=== PATIENT | male | born 1955 | race Caucasian/White ===

== ENCOUNTER 2017-01-27 12:35 | Emergency (ER) | payer BC ==
[2017-01-27] MEDS ORDERED: KETOROLAC 30 MG/ML 1 ML VIAL IVP STA (13:31)
[2017-01-27] MEDS ORDERED: SODIUM CHLORIDE 0.9% 1,000 ML IV STA (13:31)
[2017-01-27] MEDS ORDERED: ONDANSETRON 4 MG/2 ML VIAL IVP STA (13:31)
--- NOTE | 2017-01-27 13:40 | ED ---
General Adult HPI - General Chief complaint: Abdominal Pain Stated complaint: Abdominal Pain Time Seen by Provider: 01/27/17 13:24 Source: patient, RN notes reviewed, old records reviewed Mode of arrival: ambulatory Limitations: no limitations - History of Present Illness Initial comments: This is a 61-year-old male to the ER for evaluation. The patient presents here today for evaluation of abdominal pain. Patient did see his family doctor in [place] for the same evaluation. Patient has no medical history takes no medication. Patient's pain appears very quadrant with nausea. Symptoms seem to occur after eating. Patient is scheduled for ultrasound on Tuesday, states pain Keppra from being able to make that appointment today. Pain is getting progressively worse no fevers. No change in bowel or bladder - Related Data Home Medications Medication Instructions Recorded Confirmed Cholecalciferol [Vitamin D3] 2,000 unit PO DAILY 01/27/17 01/27/17 Lisinopril [Zestril] 20 mg PO HS 01/27/17 01/27/17 Simvastatin [Zocor] 80 mg PO MO 01/27/17 01/27/17 Tamsulosin HCl [Flomax] 0.4 mg PO HS 01/27/17 01/27/17 Allergies Allergy/AdvReac Type Severity Reaction Status Date / Time No Known Allergies Allergy Verified 01/27/17 13:50 Review of Systems ROS Statement: Those systems with pertinent positive or pertinent negative responses have been documented in the HPI. ROS Other: All systems not noted in ROS Statement are negative. Past Medical History Past Medical History: Hyperlipidemia, Hypertension History of Any Multi-Drug Resistant Organisms: None Reported Past Surgical History: Orthopedic Surgery Additional Past Surgical History / Comment(s): right shoulder, left wrist Past Psychological History: No Psychological Hx Reported Smoking Status: Current every day smoker Past Alcohol Use History: Occasional Past Drug Use History: None Reported General Exam Limitations: no limitations General appearance: alert, in no apparent distress Head exam: Present: atraumatic, normocephalic, normal inspection Eye exam: Present: normal appearance, PERRL, EOMI. Absent: scleral icterus, conjunctival injection, periorbital swelling ENT exam: Present: normal exam, mucous membranes moist Neck exam: Present: normal inspection. Absent: tenderness, meningismus, lymphadenopathy Respiratory exam: Present: normal lung sounds bilaterally. Absent: respiratory distress, wheezes, rales, rhonchi, stridor Cardiovascular Exam: Present: regular rate, normal rhythm, normal heart sounds. Absent: systolic murmur, diastolic murmur, rubs, gallop, clicks GI/Abdominal exam: Present: soft, normal bowel sounds. Absent: distended, tenderness, guarding, rebound, rigid Extremities exam: Present: normal inspection, full ROM, normal capillary refill. Absent: tenderness, pedal edema, joint swelling, calf tenderness Back exam: Present: normal inspection Neurological exam: Present: alert, oriented X3, CN II-XII intact Psychiatric exam: Present: normal affect, normal mood Skin exam: Present: warm, dry, intact, normal color. Absent: rash Course Vital Signs 01/27/17 12:51 Temperature 97.8 F Pulse Rate 84 Respiratory 20 Rate Blood Pressure 139/71 O2 Sat by Pulse 99 Oximetry - Reevaluation(s) Reevaluation #1: 01/27/17 14:53 At this time patient's pain is completely improved Medical Decision Making - Medical Decision Making 58 female here for evaluation earlier colic, patient does have symptoms insistent with biliary colic, also is negative for acute cholecystitis, patient will be given follow-up for general surgery, advocated for outpatient HIDA scan. - Lab Data Result diagrams: 01/27/17 13:55 01/27/17 13:55 Lab Results 01/27/17 01/27/17 Range/Units 13:55 13:55 WBC 8.0 (3.8-10.6) k/uL RBC 5.21 (4.30-5.90) m/uL Hgb 16.0 (13.0-17.5) gm/dL Hct 45.6 (39.0-53.0) % MCV 87.5 (80.0-100.0) fL MCH 30.7 (25.0-35.0) pg MCHC 35.1 (31.0-37.0) g/dL RDW 13.5 (11.5-15.5) % Plt Count 184 (150-450) k/uL Neutrophils % 67 % Lymphocytes % 22 % Monocytes % 4 % Eosinophils % 2 % Basophils % 1 % Neutrophils # 5.4 (1.3-7.7) k/uL Lymphocytes # 1.8 (1.0-4.8) k/uL Monocytes # 0.4 (0-1.0) k/uL Eosinophils # 0.2 (0-0.7) k/uL Basophils # 0.1 (0-0.2) k/uL Sodium 138 (137-145) mmol/L Potassium 4.6 (3.5-5.1) mmol/L Chloride 100 (98-107) mmol/L Carbon Dioxide 29 (22-30) mmol/L Anion Gap 9 mmol/L BUN 18 (9-20) mg/dL Creatinine 1.17 (0.66-1.25) mg/dL Est GFR (MDRD) Af Amer >60 (>60 ml/min/1.73 sqM) Est GFR (MDRD) Non-Af >60 (>60 ml/min/1.73 sqM) Glucose 92 (74-99) mg/dL Calcium 10.3 H (8.4-10.2) mg/dL Total Bilirubin 0.6 (0.2-1.3) mg/dL AST 26 (17-59) U/L ALT 32 (21-72) U/L Alkaline Phosphatase 69 (38-126) U/L Total Protein 7.6 (6.3-8.2) g/dL Albumin 4.5 (3.5-5.0) g/dL Amylase 87 (30-110) U/L Lipase 322 H (23-300) U/L - Radiology Data Radiology results: report reviewed (Ultrasound gallbladder shows contracted gallbladder but no definite cholelithiasis or cholecystitis), image reviewed Disposition Clinical Impression: Abdominal pain, Pancreatitis Disposition: HOME SELF-CARE Condition: Good Instructions: Abdominal Pain (ED), Biliary Colic (ED) Referrals: Alvaro Vences MD [STAFF PHYSICIAN] - 1-2 days
[2017-01-27 14:06] LABS: Basophils # (A) 0.1 k/uL (0-0.2); Basophils % (A) 1 %; CH 30.9; CHCM 35.6; Eosinophils # (A) 0.2 k/uL (0-0.7); Eosinophils % (A) 2 %; HCT 45.6 % (39.0-53.0); Luc % (Auto) 4; Lymphocytes # (A) 1.8 k/uL (1.0-4.8); Lymphocytes % (A) 22 %; MCH 30.7 pg (25.0-35.0); MCHC 35.1 g/dL (31.0-37.0); MCV 87.5 fL (80.0-100.0); Mean Platelet Volume 7.3; Monocytes # (A) 0.4 k/uL (0-1.0); Monocytes % (A) 4 %; Neutrophils # (A) 5.4 k/uL (1.3-7.7); Neutrophils % (A) 67 %; RBC 5.21 m/uL (4.30-5.90); RDW 13.5 % (11.5-15.5); WBC (Perox) 7.86
[2017-01-27 14:13] LABS: ALT 32 U/L (21-72); AST 26 U/L (17-59); Alkaline Phosphatase 69 U/L (38-126); Amylase 87 U/L (30-110); Anion Gap 9 mmol/L; Blood Urea Nitrogen 18 mg/dL (9-20); Calcium 10.3 mg/dL (8.4-10.2); Carbon Dioxide 29 mmol/L (22-30); Chloride 100 mmol/L (98-107); Glucose 92 mg/dL (74-99); Non-African American GFR(MDRD) >60 (>60 ml/min/1.73 sqM); Potassium 4.6 mmol/L (3.5-5.1); Sodium 138 mmol/L (137-145); Total Bilirubin 0.6 mg/dL (0.2-1.3); Total Protein 7.6 g/dL (6.3-8.2)
--- NOTE | 2017-01-27 14:50 | US ---
EXAMINATION TYPE: US gallbladder DATE OF EXAM: 01/27/2017 2:25 PM COMPARISON: NONE CLINICAL HISTORY: Pain. EXAM MEASUREMENTS: Liver Length: 13.2 cm Gallbladder Wall: 0.3 cm CBD: 0.2 cm Right Kidney: 10.4 x 4.5 x 4.7 cm patient ate lunch 3 hours prior Pancreas: Obscured by bowel gas Liver: wnl Gallbladder: patient not NPO, appears wnl Evidence for sonographic Haynes's sign: CBD: wnl Right Kidney: wnl IMPRESSION: The gallbladder is contracted however no definite cholelithiasis is appreciated.
[2017-01-27 15:23] VITALS: BP 128/70; PULSE 76; RESP 18; TEMP 97.9
== END 2017-01-27 15:23 | disposition home or self-care (01) ==
LOC: EC 12:35
DX: K85.90 Acute pancreatitis without necrosis or infection, unspecified (principal); K80.50 Calculus of bile duct without cholangitis or cholecystitis without obstruction; E78.5 Hyperlipidemia, unspecified; I10 Essential (primary) hypertension; F17.200 Nicotine dependence, unspecified, uncomplicated; Z79.899 Other long term (current) drug therapy
CPT/HCPCS: 99284 ×2; 96374 ×2; 96375 ×2; 96361 ×2; 36415; 80053; 82150; 83690; 85025; 76705; J2405; J1885

== ENCOUNTER 2017-02-03 11:15 | Observation (INO) | payer BC ==
[2017-02-03] MEDS ORDERED: SODIUM CHLORIDE 0.9% 1,000 ML IV STA ×2 (11:45→12:50)
[2017-02-03 11:54] LABS: Basophils % (A) 1 %; CH 30.9; CHCM 34.9; Eosinophils # (A) 0.1 k/uL (0-0.7); Eosinophils % (A) 1 %; HCT 46.7 % (39.0-53.0); HDW 2.94; HGB 15.5 gm/dL (13.0-17.5); Luc # (Auto) 0.26; Luc % (Auto) 3; Lymphocytes # (A) 1.9 k/uL (1.0-4.8); Lymphocytes % (A) 21 %; MCH 29.4 pg (25.0-35.0); MCHC 33.1 g/dL (31.0-37.0); MCV 88.9 fL (80.0-100.0); Mean Platelet Volume 6.6; Monocytes # (A) 0.4 k/uL (0-1.0); Monocytes % (A) 5 %; Neutrophils # (A) 6.2 k/uL (1.3-7.7); Neutrophils % (A) 70 %; RBC 5.25 m/uL (4.30-5.90); RDW 13.5 % (11.5-15.5); WBC 8.9 k/uL (3.8-10.6); WBC (Perox) 8.63
[2017-02-03 12:03] LABS: ALT 30 U/L (21-72); AST 20 U/L (17-59); Alkaline Phosphatase 63 U/L (38-126); Anion Gap 10 mmol/L; Blood Urea Nitrogen 20 mg/dL (9-20); Calcium 9.2 mg/dL (8.4-10.2); Carbon Dioxide 26 mmol/L (22-30); Chloride 102 mmol/L (98-107); Glucose 125 mg/dL (74-99); Magnesium 2.1 mg/dL (1.6-2.3); Non-African American GFR(MDRD) >60 (>60 ml/min/1.73 sqM); Phosphorous 4.5 mg/dL (2.5-4.5); Potassium 4.3 mmol/L (3.5-5.1); Sodium 138 mmol/L (137-145); Total Bilirubin 0.6 mg/dL (0.2-1.3); Total Protein 6.9 g/dL (6.3-8.2)
--- NOTE | 2017-02-03 12:07 | ED ---
General Adult HPI - General Chief complaint: Dizziness Stated complaint: dizziness Time Seen by Provider: 02/03/17 11:22 Source: patient, EMS, RN notes reviewed, old records reviewed Mode of arrival: EMS - History of Present Illness Initial comments: This is a 61-year-old male the ER for evaluation. The patient presents for evaluation of near syncopal event. Patient has no significant medical history is been recently taking pain control for gallbladder disease. Patient states that he started off today feeling well had a little pain recently with her gallbladder but nothing significant. And then had a near syncopal event at work today, became very flushed diaphoretic weak and can hardly stand. On arrival to ER patient states his symptoms are improving - Related Data Home Medications Medication Instructions Recorded Confirmed Cholecalciferol [Vitamin D3] 2,000 unit PO DAILY 01/27/17 02/03/17 Lisinopril [Zestril] 20 mg PO DAILY 01/27/17 02/03/17 Simvastatin [Zocor] 80 mg PO MO 01/27/17 02/03/17 Tamsulosin HCl [Flomax] 0.4 mg PO HS 01/27/17 02/03/17 Previous Rx's Medication Instructions Recorded HYDROcodone/APAP 5-325MG [[place] 1 tab PO Q6HR PRN #30 tab 01/27/17 5-325] Allergies Allergy/AdvReac Type Severity Reaction Status Date / Time No Known Allergies Allergy Verified 02/03/17 11:54 Review of Systems ROS Statement: Those systems with pertinent positive or pertinent negative responses have been documented in the HPI. ROS Other: All systems not noted in ROS Statement are negative. Past Medical History Past Medical History: Hyperlipidemia, Hypertension History of Any Multi-Drug Resistant Organisms: None Reported Past Surgical History: Orthopedic Surgery Additional Past Surgical History / Comment(s): right shoulder, left wrist and jaw Past Psychological History: No Psychological Hx Reported Smoking Status: Current every day smoker Past Alcohol Use History: None Reported, Occasional Past Drug Use History: None Reported General Exam General appearance: alert, in no apparent distress Head exam: Present: atraumatic, normocephalic, normal inspection Eye exam: Present: normal appearance, PERRL, EOMI. Absent: scleral icterus, conjunctival injection, periorbital swelling ENT exam: Present: normal exam, mucous membranes moist Neck exam: Present: normal inspection. Absent: tenderness, meningismus, lymphadenopathy Respiratory exam: Present: normal lung sounds bilaterally. Absent: respiratory distress, wheezes, rales, rhonchi, stridor Cardiovascular Exam: Present: regular rate, normal rhythm, normal heart sounds. Absent: systolic murmur, diastolic murmur, rubs, gallop, clicks GI/Abdominal exam: Present: soft, normal bowel sounds. Absent: distended, tenderness, guarding, rebound, rigid Extremities exam: Present: normal inspection, full ROM, normal capillary refill. Absent: tenderness, pedal edema, joint swelling, calf tenderness Back exam: Present: normal inspection Neurological exam: Present: alert, oriented X3, CN II-XII intact Psychiatric exam: Present: normal affect, normal mood Skin exam: Present: warm, dry, intact, normal color. Absent: rash Course Vital Signs 02/03/17 02/03/17 02/03/17 11:23 12:32 13:15 Temperature 97.1 F L 97.2 F L 97.2 F L Pulse Rate 55 L 63 73 Respiratory 18 18 18 Rate Blood Pressure 143/74 135/67 146/68 O2 Sat by Pulse 98 96 98 Oximetry 02/03/17 02/03/17 14:18 15:12 Temperature 97.5 F L 98.1 F Pulse Rate 79 72 Respiratory 20 18 Rate Blood Pressure 142/67 147/79 O2 Sat by Pulse 100 97 Oximetry - Reevaluation(s) Reevaluation #1: 02/03/17 15:42 At this point patient is relatively symptomatically no chest pain or shortness of breath, no abdominal pain no nausea vomiting EKG Findings - EKG Comments: EKG Findings:: EKG shows sinus bradycardia rate 58, ME 178, QRS 86, QTC 406 Medical Decision Making - Medical Decision Making 58 female, in the ER status post near syncopal event. Patient's been dealing with episodic abdominal pain and back pain correlated or what he thinks might be his gallbladder, patient has gallbladder evaluation with ultrasound showing gallbladder disease but no acute cholecystitis, patient has CT CTA today which show no PE no aortic aneurysm, lab work is normal patient will be admitted for cardiac observation and surgical evaluation - Lab Data Result diagrams: 02/03/17 11:38 02/03/17 11:38 Lab Results 03/09/17 03/09/17 03/09/17 Range/Units 11:38 11:38 11:38 WBC 8.9 (3.8-10.6) k/uL RBC 5.25 (4.30-5.90) m/uL Hgb 15.5 (13.0-17.5) gm/dL Hct 46.7 (39.0-53.0) % MCV 88.9 (80.0-100.0) fL MCH 29.4 (25.0-35.0) pg MCHC 33.1 (31.0-37.0) g/dL RDW 13.5 (11.5-15.5) % Plt Count 181 (150-450) k/uL Neutrophils % 70 % Lymphocytes % 21 % Monocytes % 5 % Eosinophils % 1 % Basophils % 1 % Neutrophils # 6.2 (1.3-7.7) k/uL Lymphocytes # 1.9 (1.0-4.8) k/uL Monocytes # 0.4 (0-1.0) k/uL Eosinophils # 0.1 (0-0.7) k/uL Basophils # 0.0 (0-0.2) k/uL PT (9.0-12.0) sec INR (<1.1) APTT (22.0-30.0) sec D-Dimer (<0.60) mg/L FEU Sodium 138 (137-145) mmol/L Potassium 4.3 (3.5-5.1) mmol/L Chloride 102 (98-107) mmol/L Carbon Dioxide 26 (22-30) mmol/L Anion Gap 10 mmol/L BUN 20 (9-20) mg/dL Creatinine 1.14 (0.66-1.25) mg/dL Est GFR (MDRD) Af Amer >60 (>60 ml/min/1.73 sqM) Est GFR (MDRD) Non-Af >60 (>60 ml/min/1.73 sqM) Glucose 125 H (74-99) mg/dL Calcium 9.2 (8.4-10.2) mg/dL Phosphorus 4.5 (2.5-4.5) mg/dL Magnesium 2.1 (1.6-2.3) mg/dL Total Bilirubin 0.6 (0.2-1.3) mg/dL AST 20 (17-59) U/L ALT 30 (21-72) U/L Alkaline Phosphatase 63 (38-126) U/L Total Creatine Kinase 116 (55-170) U/L CK-MB (CK-2) 0.9 (0.0-2.4) ng/mL CK-MB (CK-2) Rel Index 0.8 Troponin I <0.012 (0.000-0.034) ng/mL Total Protein 6.9 (6.3-8.2) g/dL Albumin 4.3 (3.5-5.0) g/dL Lipase (23-300) U/L 02/03/17 02/03/17 02/03/17 Range/Units 11:38 11:38 11:38 WBC (3.8-10.6) k/uL RBC (4.30-5.90) m/uL Hgb (13.0-17.5) gm/dL Hct (39.0-53.0) % MCV (80.0-100.0) fL MCH (25.0-35.0) pg MCHC (31.0-37.0) g/dL RDW (11.5-15.5) % Plt Count (150-450) k/uL Neutrophils % % Lymphocytes % % Monocytes % % Eosinophils % % Basophils % % Neutrophils # (1.3-7.7) k/uL Lymphocytes # (1.0-4.8) k/uL Monocytes # (0-1.0) k/uL Eosinophils # (0-0.7) k/uL Basophils # (0-0.2) k/uL PT 10.6 (9.0-12.0) sec INR 1.1 (<1.1) APTT 22.8 (22.0-30.0) sec D-Dimer 0.41 (<0.60) mg/L FEU Sodium (137-145) mmol/L Potassium (3.5-5.1) mmol/L Chloride (98-107) mmol/L Carbon Dioxide (22-30) mmol/L Anion Gap mmol/L BUN (9-20) mg/dL Creatinine (0.66-1.25) mg/dL Est GFR (MDRD) Af Amer (>60 ml/min/1.73 sqM) Est GFR (MDRD) Non-Af (>60 ml/min/1.73 sqM) Glucose (74-99) mg/dL Calcium (8.4-10.2) mg/dL Phosphorus (2.5-4.5) mg/dL Magnesium (1.6-2.3) mg/dL Total Bilirubin (0.2-1.3) mg/dL AST (17-59) U/L ALT (21-72) U/L Alkaline Phosphatase (38-126) U/L Total Creatine Kinase (55-170) U/L CK-MB (CK-2) (0.0-2.4) ng/mL CK-MB (CK-2) Rel Index Troponin I (0.000-0.034) ng/mL Total Protein (6.3-8.2) g/dL Albumin (3.5-5.0) g/dL Lipase 229 (23-300) U/L - Radiology Data Radiology results: report reviewed, image reviewed Critical Care Time Critical Care Time: Yes Total Critical Care Time: 31 Disposition Clinical Impression: Weakness, Near syncope, Abdominal pain Disposition: ADMITTED IP TO THIS [facility] Condition: Undetermined Referrals: Any Junior DO [Primary Care Provider] - 1-2 days
[2017-02-03 12:13] LABS: Creatine Kinase 116 U/L (55-170)
[2017-02-03 12:26] LABS: Creatine Kinase MB 0.9 ng/mL (0.0-2.4); Troponin I <0.012 ng/mL (0.000-0.034)
[2017-02-03 12:31] LABS: INR 1.1 (<1.1); Partial Thromboplastin Time 22.8 sec (22.0-30.0); Prothrombin Time 10.6 sec (9.0-12.0)
[2017-02-03] MEDS ORDERED: RX INFO: IV CONTRAST WAS GIVEN 1 EACH MISC MISCELLANE PRN (13:28)
--- NOTE | 2017-02-03 14:57 | CT ---
CT CHEST FOR PULMONARY EMBOLISM. EXAMINATION TYPE: CT angio chest DATE OF EXAM: 02/03/2017 2:03 PM INDICATION: fatigue and near syncopal episode. CT DLP: 1675.3 mGycm, Automated exposure control for dose reduction was used. CONTRAST: Patient injected with 100 mL of Omnipaque 350. COMPARISON: NONE TECHNIQUE: CT of the chest is performed on a spiral scan at 2 mm thick sections. Study is performed with intravenous contrast timed for evaluation for pulmonary embolism. This will limit additional po rtions of the evaluation. 3-D MIP images reconstructed by the technologist are reviewed on the compu ter in the coronal and sagittal planes. FINDINGS: No persistent filling defects are evident to suggest an acute pulmonary embolism. No mediastinal or hilar adenopathy enlarged by CT criteria is evident. The ascending aorta diameter at the level of the main pulmonary artery is 3.4 cm. The main pulmonary artery diameter at the bifur cation is 2.2 cm. Lung windows are clear. Limited CT section through the upper abdomen are unremarkable. IMPRESSIONS: 1. No acute pulmonary embolism.
--- NOTE | 2017-02-03 15:23 | CT ---
EXAMINATION TYPE: CT abdomen pelvis w con DATE OF EXAM: 02/03/2017 2:03 PM COMPARISON: NONE INDICATION: fatigue and near syncopal episode. DLP: 1675.3 mGycm, Automated exposure control for dose reduction was used. CONTRAST: 100 mL of Omnipaque 350. Study performed without Oral Contrast TECHNIQUE: Axial images were obtained from above the diaphragm to the pubic rami in the axial plane a t 5 mm thick sections. Reconstructed images are reviewed on the computer in the coronal plane. FINDINGS: Limited CT sections are obtained the lung bases. The lung bases are clear. CT ABDOMEN: Liver: Normal Spleen: Normal Pancreas: Normal Adrenal glands: The adrenal glands are normal. Gallbladder: Normal Kidneys: No masses are evident. No hydronephrosis is present. No cysts are present. Delayed images were obtained through the kidneys, which remain unremarkable. Aorta: Vascular calcification is within the aorta. Inferior vena cava: Normal. CT PELVIS: Loops of bowel within the abdomen and pelvis are normal. Sigmoid diverticulosis is present. No ac [place] diverticulitis is evident. No dilated loops of bowel are evident. Appendix: Normal as visualized. Urinary bladder: Normal. Genitourinary structures: Prostate is somewhat prominent. A few calcifications are present. Osseous structures: No suspicious lytic or sclerotic lesions. IMPRESSIONS: 1. No acute process. 2. Sigmoid diverticulosis without acute diverticulitis.
[2017-02-03] MEDS ORDERED: NITROGLYCERIN SL TABS 0.4 MG TAB SUBLINGUAL PRN (15:46)
[2017-02-03] MEDS ORDERED: ASPIRIN 81 MG CHEW PO STA (15:46)
[2017-02-03 19:08] LABS: Creatine Kinase 133 U/L (55-170)
[2017-02-03 19:24] LABS: Creatine Kinase MB 0.9 ng/mL (0.0-2.4); Troponin I <0.012 ng/mL (0.000-0.034)
[2017-02-04 00:17] LABS: Creatine Kinase 123 U/L (55-170)
[2017-02-04 00:31] LABS: Creatine Kinase MB 0.6 ng/mL (0.0-2.4); Troponin I <0.012 ng/mL (0.000-0.034)
[2017-02-04 01:56] LABS: Cholesterol 152 mg/dL (<200); HDL Cholesterol 48 mg/dL (40-60); Triglycerides 132 mg/dL (<150)
[2017-02-04] MEDS ORDERED: HYDROcodone/APAP 5-325MG 1 EACH TAB PO PRN (08:54)
[2017-02-04 09:32] LABS: Basophils % (A) 1 %; CH 30.8; CHCM 34.8; Eosinophils # (A) 0.1 k/uL (0-0.7); Eosinophils % (A) 1 %; HCT 46.1 % (39.0-53.0); HDW 2.92; HGB 15.4 gm/dL (13.0-17.5); Luc # (Auto) 0.28; Luc % (Auto) 4; Lymphocytes % (A) 27 %; MCH 29.8 pg (25.0-35.0); MCHC 33.5 g/dL (31.0-37.0); MCV 89.1 fL (80.0-100.0); Mean Platelet Volume 6.6; Monocytes # (A) 0.4 k/uL (0-1.0); Monocytes % (A) 5 %; Neutrophils # (A) 4.7 k/uL (1.3-7.7); Neutrophils % (A) 63 %; RBC 5.18 m/uL (4.30-5.90); RDW 13.6 % (11.5-15.5); WBC 7.5 k/uL (3.8-10.6); WBC (Perox) 7.51
[2017-02-04 09:41] LABS: ALT 24 U/L (21-72); AST 21 U/L (17-59); Alkaline Phosphatase 64 U/L (38-126); Anion Gap 11 mmol/L; Blood Urea Nitrogen 16 mg/dL (9-20); Calcium 9.5 mg/dL (8.4-10.2); Carbon Dioxide 24 mmol/L (22-30); Chloride 106 mmol/L (98-107); Glucose 113 mg/dL (74-99); Non-African American GFR(MDRD) >60 (>60 ml/min/1.73 sqM); Potassium 4.4 mmol/L (3.5-5.1); Sodium 141 mmol/L (137-145); Total Bilirubin 0.7 mg/dL (0.2-1.3)
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
[2017-02-04] MEDS ORDERED: CHOLECALCIFEROL 1,000 UNIT TAB PO SCH (12:00)
[2017-02-04] MEDS: ENOXAPARIN 40 MG/0.4 ML SYRINGE SQ SCH (14:28)
[2017-02-04] MEDS: NICOTINE 21MG/24HR PATCH TRANSDERM SCH (14:28)
[2017-02-04] MEDS: LISINOPRIL 20 MG TAB PO SCH (14:29)
[2017-02-04] MEDS: ASPIRIN 325 MG TAB PO SCH (15:16)
--- NOTE | 2017-02-04 16:16 | CONS ---
DATE OF CONSULTATION: Mr. Asencio is a 61-year-old gentleman who is seen for cardiac evaluation. This patient recently has been having pain in the right upper and mid quadrant and has been evaluated for possible gallbladder. Yesterday while patient was at work he had a couple of episodes of chest pain and he took [place]. About an hour after that the patient got quite dizzy; he became diaphoretic and weak and his color became pale. He did not pass out. When he came to the ER his symptoms were improving. Patient has a history of hypertension, hyperlipidemia. Patient denies any history suggestive of angina. Patient does smoke. There is no prior history of myocardial infarction. Past medical history includes a history of orthopedic surgery, right shoulder and left wrist surgery. Smoking history: Patient is currently an everyday smoker. In the emergency room, physical examination showed patient alert and awake; does not appear to be in any acute distress. In the emergency room, patient's initial blood pressure was 143/74 mmHg. Heart rate was 55 per minute. Physical examination now reveals a blood pressure 135/62 mmHg. Head/ENT examination is negative. Neck is supple. There is no increase in jugular venous pressure. Both the carotid pulses are felt. There is no bruit. Chest is symmetrical. HEART: The PMI is not felt. First and second heart sounds are normal. There is no evidence of any murmur. Lungs are clinically clear to auscultation and percussion. Abdomen is soft. Liver and spleen are not enlarged. Bowel sounds are heard. EXTREMITIES: Peripheral pulsations are 2+. EKG shows a normal sinus rhythm without any acute ischemic changes. Patient's cardiac enzymes are normal. No arrhythmias are noted. FINAL IMPRESSION: 1. Near-syncopal spell, most likely secondary to pain medications. 2. History of gallstones. 3. History of hypertension. No arrhythmias are noted. If patient's echocardiogram is normal, patient can be discharged home. I will follow him in the office and evaluate him with a stress test as an outpatient.
--- NOTE | 2017-02-04 16:20 | ECHOF ---
Referral Reason:syncope MEASUREMENTS -------- HEIGHT: 160.0 cm WEIGHT: 69.0 kg BP: RVIDd: 2.8 cm (< 3.3) IVSd: 1.1 cm (0.6 - 1.1) LVIDd: 4.2 cm (3.9 - 5.3) LVPWd: 1.0 cm (0.6 - 1.1) IVSs: 1.7 cm LVIDs: 2.6 cm LVPWs: 1.4 cm LA Diam: 2.8 cm (2.7 - 3.8) LAESV Index (A-L): 23.01 ml/m Ao Diam: 2.8 cm (2.0 - 3.7) AV Cusp: 1.8 cm (1.5 - 2.6) LA Diam: 3.0 cm (2.7 - 3.8) MV EXCURSION: 10.412 mm (> 18.000) MV EF SLOPE: 91 mm/s (70 - 150) EPSS: 0.8 cm MV E Angus: 0.65 m/s MV DecT: 136 ms MV A Angus: 0.62 m/s MV E/A Ratio: 1.04 FINDINGS -------- Sinus rhythm. This was a technically good study. Left ventricular wall thickness is normal. Overall left ventricular systolic function is normal with, an EF between 55 - 60 %. The right ventricle is normal in size. Normal LA size by volume 22+/-6 ml/m2. The right atrium is normal in size. Aortic valve is trileaflet and is mildly thickened. Mild mitral annular calcification present. Trace tricuspid regurgitation present. Pulmonic valve appears structurally normal. The aortic root size is normal. Normal inferior vena cava with normal inspiratory collapse consistent with estimated right atrial pressure of 5 mmHg. Echo free space may represent effusion or a pericardial fat pad. CONCLUSIONS -------- 1. Sinus rhythm. 2. Trace tricuspid regurgitation present. 3. Pulmonic valve appears structurally normal. 4. The aortic root size is normal. 5. Normal inferior vena cava with normal inspiratory collapse consistent with estimated right atrial pressure of 5 mmHg. 6. Echo free space may represent effusion or a pericardial fat pad. 7. This was a technically good study. 8. Left ventricular wall thickness is normal. 9. Overall left ventricular systolic function is normal with, an EF between 55 - 60 %. 10. The right ventricle is normal in size. 11. Normal LA size by volume 22+/-6 ml/m2. 12. The right atrium is normal in size. 13. Aortic valve is trileaflet and is mildly thickened. 14. Mild mitral annular calcification present. RETAIL ASSOCIATE: Kei Holt RDCS
--- NOTE | 2017-02-04 18:57 | NM ---
EXAMINATION TYPE: NM hepatobiliary w EF DATE OF EXAM: 02/04/2017 6:49 PM COMPARISON: NONE HISTORY: Abdominal pain TECHNIQUE: After the intravenous administration of 5.4 mCi Tc 99m Mebrofenin hepatobiliary scintigrap hy is performed. Immediate images post injection. FINDINGS: There is satisfactory initial accumulation of tracer by the liver. The gallbladder is visualized wit hin 10 minutes minutes. The small bowel activity is noted within 20 minutes. At one hour 8 ounces o f oral ensure plus is given to mimic CCK and gallbladder ejection fraction is calculated at 53 %, in the normal range. Therefore there is no scintigraphic evidence of cystic or common bile duct obstruc tion to suggest acute cholecystitis or gallbladder dyskinesia. IMPRESSION: No focal liver defect. No evidence of cystic duct or common bile duct obstruction. There is gallbladder ejection fraction within normal limits.
[2017-02-04 19:25] VITALS: RESP 18
[2017-02-04] MEDS ORDERED: TAMSULOSIN 0.4 MG CAP.ER.24H PO SCH (21:00)
[2017-02-05] MEDS: LISINOPRIL 20 MG TAB PO SCH (07:50)
[2017-02-05] MEDS: ASPIRIN 325 MG TAB PO SCH (07:50)
[2017-02-05] MEDS: NICOTINE 21MG/24HR PATCH TRANSDERM SCH (07:51)
[2017-02-05] MEDS: ENOXAPARIN 40 MG/0.4 ML SYRINGE SQ SCH (07:51)
[2017-02-05] MEDS ORDERED: FAMOTIDINE 20 MG TAB PO SCH (09:00)
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
[2017-02-05 12:03] VITALS: BP 132/69; PULSE 73; TEMP 98
--- NOTE | 2017-02-05 12:11 | PN ---
This patient was seen for the evaluation of dizziness and abdominal pain. Patient has been found to have a gallstone and he is supposed to have gallstone surgery. Patient's echocardiogram was normal. Vital signs are stable. First and second heart sounds are normal. Lungs are clinically clear to auscultation and percussion. No arrhythmias are noted. Patient can be discharged home. We will schedule him for a stress echo as an outpatient. If the stress echo is normal, one can proceed with the gallbladder surgery.
--- NOTE | 2017-02-05 15:02 | P.DS ---
Providers Date of admission: 02/03/17 15:47 Expected date of discharge: 02/05/17 Attending physician: Narciso Sosa Consults: 02/04/17 14:37 Consult Physician Stat Consulting Provider: Rustam Shaffer Consult Reason/Comments: right upper quadrant pain Do you want consulting provider notified?: Yes Primary care physician: Any Junior [facility] Course: Patient is a 61-year-old male admitted to [facility] was a chief complaint of near syncope and right upper quadrant abdominal pain he was evaluated by cardiology he had an echocardiogram which was within normal limits he had a CT angiogram of the chest which revealed no evidence of pulmonary embolism. In that regard to his right upper quadrant pain patient had a computed tomography scan of the abdomen which revealed no abnormality pertaining to his gallbladder he also underwent a nuclear scan HIDA scan which was negative Patient was stable he was discharged home on 02/05/2017 he will be followed by his primary care physician as [facility] he would also be followed by Dr. Shaffer his surgeon Patient Condition at Discharge: Undetermined Plan - Discharge Summary Discharge Medication List Cholecalciferol [Vitamin D3] 2,000 unit PO DAILY 01/27/17 [History] HYDROcodone/APAP 5-325MG [[place] 5-325] 1 tab PO Q6HR PRN #30 tab 01/27/17 [Rx] Lisinopril [Zestril] 20 mg PO DAILY 01/27/17 [History] Simvastatin [Zocor] 80 mg PO MO 01/27/17 [History] Tamsulosin HCl [Flomax] 0.4 mg PO HS 01/27/17 [History] Follow up Appointment(s)/Referral(s): Valdemar Medina MD [Medical Doctor] - As Needed (Follow up as needed. ) Any Junior DO [Primary Care Provider] - 1-2 days Xin Cook MD [STAFF PHYSICIAN] - 2 Weeks Discharge Disposition: HOME SELF-CARE
[2017-02-07] MEDS ORDERED: ATORVASTATIN 40 MG TAB PO SCH (09:00)
== END 2017-02-05 12:30 | disposition home or self-care (01) ==
LOC: EC 11:15 → 3OBS 15:47
PROVIDERS: ADMIT Internal Medicine; ATTEND Internal Medicine
DX: R55 Syncope and collapse (principal); R10.11 Right upper quadrant pain; F17.200 Nicotine dependence, unspecified, uncomplicated; I10 Essential (primary) hypertension; N40.0 Benign prostatic hyperplasia without lower urinary tract symptoms; E78.5 Hyperlipidemia, unspecified; Z79.899 Other long term (current) drug therapy; K80.20 Calculus of gallbladder without cholecystitis without obstruction; R53.1 Weakness; R61 Generalized hyperhidrosis; R07.9 Chest pain, unspecified
CPT/HCPCS: 36415; 93005; 93306; 85379; 80061; 80053 ×2; 82550; 82553; 83690; 83735; 84100; 84484; 85025 ×2; 85610; 85730; 71275; 74177; 78226; 99291; 96360; 96361; G0378 ×3; A9537; Q9967; J1650; 96372; 99285

== ENCOUNTER 2017-03-01 08:37 | Day surgery (SDC) | payer BC ==
[2017-02-24 11:57] VITALS: BMI 25.7
[~2017-03-01 08:37] MED LIST: LACTATED RINGERS 1,000 ML IV SCH; LIDOCAINE 1% 20 ML VIAL (10MG/ML) FOR IV START INTRADERMA PRN
[2017-03-01 08:55] VITALS: RESP 16; TEMP 97.6
[2017-03-01] MEDS ORDERED: LIDOCAINE 1% INJ 10MG/ML (20 ML MDV) ONE (09:10)
[2017-03-01] MEDS ORDERED: PROPOFOL 10 MG/ML 20 ML VIAL IV ONE (09:10)
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
--- NOTE | 2017-03-01 09:27 | P.PN ---
Progress Note - Text The patient's ultrasound was reviewed with the radiologist. There does in fact appear to be sludge in the gallbladder. The patient's right upper quadrant pain may be related to this. The radial report will be revised.
--- NOTE | 2017-03-01 09:31 | P.OP ---
Date of Procedure: 03/01/17 Preoperative Diagnosis: Right upper quadrant pain Postoperative Diagnosis: Mild antral gastritis Hiatal hernia Esophagitis Procedure(s) Performed: EGD Anesthesia: MAC Surgeon: Rustam Shaffer Pathology: other (Antral, esophagus) Condition: stable Disposition: PACU Description of Procedure: Patient's placed on the endoscopy table in the lateral position. He received IV sedation. The gastroscope some placed oropharynx and passed into the esophagus and into the stomach. The scope was then placed through the pylorus. The first and second portion of duodenum appeared normal. Scope was then brought back the antrum and this was mildly inflamed. A biopsies was performed. The scope was then retroflexed and the remainder of the stomach appeared normal. There was a moderate size sliding hiatal hernia. The GE junction was at 38 cm.. The distal esophagus appeared inflamed and this was biopsied. The proximal esophagus appeared normal. The scope was withdrawn for patient. The patient's ultrasound was reviewed after the procedure. The radiologist reviewed the films and agrees that there in fact his sludge within the gallbladder. The patient will follow-up in the office for his biopsy results and ultrasound results.
[2017-03-01 10:00] VITALS: BP 115/81; PULSE 85
== END 2017-03-01 10:04 | disposition home or self-care (01) ==
LOC: ORWHC2ENDO 08:37
PROVIDERS: ATTEND Surgery
DX: K29.50 Unspecified chronic gastritis without bleeding (principal); K44.9 Diaphragmatic hernia without obstruction or gangrene; K20.9 Esophagitis, unspecified; I10 Essential (primary) hypertension; E78.5 Hyperlipidemia, unspecified; N40.0 Benign prostatic hyperplasia without lower urinary tract symptoms; F17.200 Nicotine dependence, unspecified, uncomplicated; Z79.82 Long term (current) use of aspirin; Z79.899 Other long term (current) drug therapy
CPT/HCPCS: 88305; 88342; 43239; J2001; J2704

== ENCOUNTER 2017-03-24 08:46 | Day surgery (SDC) | payer BC ==
[2017-03-22 15:30] VITALS: BMI 24.9
[~2017-03-24 08:46] MED LIST changes: +DEXAMETHASONE SOD PHOSPHATE 10 MG/ML 1 ML VIAL IV ONE; +HEPARIN SODIUM,PORCINE 5,000 UNIT/ML 1 ML VIAL SQ ONE; +HYDROmorphone 1 MG/ML 1 ML SYRINGE IVP PRN; -LIDOCAINE 1% 20 ML VIAL (10MG/ML) FOR IV START INTRADERMA PRN; +ONDANSETRON 4 MG/2 ML VIAL IVP ONE; +ceFAZolin 2 GM in SODIUM CHLORIDE 0.9% 100 ML IVPB ONE
[2017-03-24] MEDS ORDERED: LIDOCAINE 1% 20 ML VIAL (10MG/ML) FOR IV START INTRADERMA ONE (09:43)
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
[2017-03-24] MEDS ORDERED: PHENYLEPHRINE-0.9% NACL SYG 1 MG/10 ML SYRINGE ONE (10:17)
[2017-03-24] MEDS ORDERED: SUCCINYLCHOLINE CHLORIDE 100 MG/5 ML SYR IV ONE (10:17)
[2017-03-24] MEDS ORDERED: NEOSTIGMINE 1 MG/ML 10 ML VIAL ONE (10:17)
[2017-03-24] MEDS ORDERED: fentaNYL (PF) 50 MCG/ML 2 ML AMP ONE (10:17)
[2017-03-24] MEDS ORDERED: PROPOFOL 10 MG/ML 20 ML VIAL IV ONE (10:17)
[2017-03-24] MEDS ORDERED: KETOROLAC 30 MG/ML 1 ML VIAL ONE (10:17)
[2017-03-24] MEDS ORDERED: GLYCOPYRROLATE 0.2 MG/ML 2 ML VIAL ONE (10:17)
[2017-03-24] MEDS ORDERED: LIDOCAINE 1% INJ 10MG/ML (20 ML MDV) ONE (10:17)
[2017-03-24] MEDS ORDERED: MIDAZOLAM 2 MG/2 ML VIAL ONE (10:17)
[2017-03-24] MEDS ORDERED: VECURONIUM 10 MG VIAL IV ONE (10:17)
[2017-03-24] MEDS ORDERED: SODIUM CHLORIDE 0.9% 50 ML with ceFAZolin 2,000 MG IV ONE ×2 (10:23)
[2017-03-24] MEDS ORDERED: BUPIVACAIN-EPI 0.25%-1:200,000 30 ML VIAL SQ ONE ×2 (10:40)
[2017-03-24] MEDS ORDERED: LACTATED RINGERS 1,000 ML IV ONE (10:46)
--- NOTE | 2017-03-24 10:51 | P.OP ---
Date of Procedure: 03/24/17 Preoperative Diagnosis: Cholecystitis Postoperative Diagnosis: Cholecystitis Procedure(s) Performed: Laparoscopic cholecystectomy Anesthesia: ABBY Surgeon: Rustam Shaffer Estimated Blood Loss (ml): 5 Pathology: other (Gallbladder) Condition: stable Disposition: PACU Description of Procedure: MThe patient was placed on the operating table. The patient received a general endotracheal tube anesthesia. The patients abdomen was prepped and draped in the usual sterile fashion. Through an infraumbilical stab incision , the fascia of the anterior abdominal wall was grasped with a pair of Kochers and then the Veress needle was placed in the peritoneal cavity. Position of the Veress needle was confirmed with positive drop test. The abdomen was then insufflated. After adequate insufflation, the 10 mm trocar was placed in the peritoneal cavity. Following this the laparoscope was placed in the peritoneal cavity. The patient was placed in the head-up, right side up position and then a 5 mm trocar was placed in the right lateral and right subcostal position under direct visualization. A 8 mm trocar was placed in the epigastric position. The gallbladder was grasped in the fundus and infundibulum. Traction on the gallbladder was placed in the lateral and the cephalad positions. The triangle of Calot was visualized.. The cystic duct was bluntly dissected until the union of the cystic duct and common bile duct was seen. The cystic duct was then divided and sealed with the Harmonic scissors. A PDS Endoloop was then placed throughout the cystic duct stump. The cystic artery divided and sealed with the Harmonic scissors. The gallbladder was then removed from the liver bed using Harmonic scissors. The gallbladder was then extracted through the epigastric port site. Operative field was checked for any bleeding spots and Harmonic scissors was used to coagulate the liver bed. The abdomen was irrigated. The trocars were removed. The skin was closed using interrupted 3-0 Vicryl suture. Dermabond dressing were applied. The patient tolerated the procedure well.
[2017-03-24 11:14] VITALS: TEMP 97.2
[2017-03-24 12:30] VITALS: RESP 18
[2017-03-24 12:36] VITALS: BP 113/66; PULSE 68
[2017-03-24] MEDS ORDERED: HYDROcodone/APAP 7.5-325MG 1 EACH TAB PO ONE (12:49)
== END 2017-03-24 13:33 | disposition home or self-care (01) ==
LOC: OR 08:46
PROVIDERS: ATTEND Surgery
DX: K80.10 Calculus of gallbladder with chronic cholecystitis without obstruction (principal); E78.5 Hyperlipidemia, unspecified; I10 Essential (primary) hypertension; N42.9 Disorder of prostate, unspecified; F17.200 Nicotine dependence, unspecified, uncomplicated; Z79.82 Long term (current) use of aspirin; Z79.899 Other long term (current) drug therapy
CPT/HCPCS: 88304; 47562; J2250; J1644; J1100; J2710; J2405; J2001; J3010; J1885; J1170; J0690; J2370; J0330; J2704

== ENCOUNTER 2019-04-13 07:35 | Observation (INO) | payer BC ==
[2019-04-13] MEDS ORDERED: SODIUM CHLORIDE 0.9% 500 ML 500 ML IV STA (07:41)
[2019-04-13] MEDS ORDERED: SODIUM CHLORIDE 0.9% 1,000 ML IV STA (07:41)
[2019-04-13] MEDS ORDERED: IPRATROPIUM-ALBUTEROL 3 ML NEB INHALATION STA (07:43)
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
[2019-04-13 07:53] LABS: Glucose,Whole Blood 142 mg/dL (75-99)
[2019-04-13 08:11] LABS: Basophils % (A) 0 %; Eosinophils # (A) 0.1 k/uL (0-0.7); Eosinophils % (A) 1 %; HCT 42.3 % (39.0-53.0); HGB 14.4 gm/dL (13.0-17.5); Lymphocytes # (A) 1.1 k/uL (1.0-4.8); Lymphocytes % (A) 14 %; MCH 29.3 pg (25.0-35.0); MCV 86.1 fL (80.0-100.0); Mean Platelet Volume 6.8; Monocytes # (A) 0.4 k/uL (0-1.0); Monocytes % (A) 4 %; Neutrophils # (A) 6.5 k/uL (1.3-7.7); Neutrophils % (A) 79 %; Platelet Count 158 k/uL (150-450); RBC 4.91 m/uL (4.30-5.90); RDW 13.8 % (11.5-15.5); WBC 8.3 k/uL (3.8-10.6)
--- NOTE | 2019-04-13 08:16 | CT ---
EXAMINATION TYPE: CT brain wo con DATE OF EXAM: 04/13/2019 COMPARISON: Syncope and dizziness HISTORY: syncope, dizziness CT DLP: 1070.4 mGycm Automated exposure control for dose reduction was used. TECHNIQUE: CT scan of the head is performed without contrast. FINDINGS: There is no acute intracranial hemorrhage or midline shift identified. There are 2 old CS F attenuated lacunar injuries seen of the right basal ganglia There is diffuse ventricular and sulcal prominence consistent with diffuse age-related cerebral atrophy. Atherosclerosis is noted of the int racranial vasculature. There is low-attenuation in the periventricular white matter consistent with chronic small vessel ischemic change. The globes are intact and the visualized sinuses are clear. IMPRESSION: 1. No acute intracranial hemorrhage or midline shift. 2. Two old right basal ganglia lacunar injuries. 3. There is diffuse age-related cerebral atrophy and chronic small vessel ischemic change, likely on the basis of chronic microangiopathy.
--- NOTE | 2019-04-13 08:22 | XR ---
EXAMINATION TYPE: XR chest 2V DATE OF EXAM: 04/13/2019 COMPARISON: NONE TECHNIQUE: PA and lateral views submitted. HISTORY: Weakness FINDINGS: The lungs are clear and there is no pneumothorax, pleural effusion, or focal pneumonia. Hyperinflat ion the lungs. Hypertrophic and degenerative changes spine. Previous surgery involving the right shou lder. 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 IMPRESSION: 1. No acute process. Correlate for COPD.
[2019-04-13 08:26] LABS: Potassium 4.1 mmol/L (3.5-5.1); Total Bilirubin 0.5 mg/dL (0.2-1.3); Total Protein 6.5 g/dL (6.3-8.2)
[2019-04-13 08:35] LABS: D-Dimer 0.37 mg/L FEU (<0.60); INR 0.9 (<1.2); Partial Thromboplastin Time 21.9 sec (22.0-30.0)
[2019-04-13 09:57] LABS: Appearance,Urine Clear (Clear); Bilirubin,Urine Negative (Negative); Blood,Urine Trace (Negative); Color,Urine Yellow; Glucose,Urine (UA) Negative (Negative); Ketones,Urine Negative (Negative); Leukocyte Esterase,Urine Negative (Negative); Mucus,Urine Rare /hpf; Nitrite,Urine Negative (Negative); PH, Urine 6.5 (5.0-8.0); Protein,Urine Negative (Negative); RBC,Urine 1 /hpf (0-5); Specific Gravity,Urine 1.018 (1.001-1.035); Urobilinogen,Urine <2.0 mg/dL (<2.0); WBC,Urine <1 /hpf (0-5)
[2019-04-13] MEDS ORDERED: NALOXONE 0.4 MG/ML 1 ML VIAL IV PRN (11:25)
[2019-04-13] MEDS ORDERED: SODIUM CHLORIDE 0.9% 1,000 ML IV SCH (11:30)
[2019-04-13] MEDS ORDERED: IPRATROPIUM-ALBUTEROL 3 ML NEB INHALATION PRN ×2 (11:33→13:02)
--- NOTE | 2019-04-13 11:33 | ED ---
Medical Decision Making - Medical Decision Making H and was offered a nicotine patch she is declining at this time - Lab Data Result diagrams: 04/13/19 07:45 04/13/19 07:45 Lab Results 04/13/19 04/13/19 04/13/19 Range/Units 07:45 07:45 07:45 WBC 8.3 (3.8-10.6) k/uL RBC 4.91 (4.30-5.90) m/uL Hgb 14.4 (13.0-17.5) gm/dL Hct 42.3 (39.0-53.0) % MCV 86.1 (80.0-100.0) fL MCH 29.3 (25.0-35.0) pg MCHC 34.0 (31.0-37.0) g/dL RDW 13.8 (11.5-15.5) % Plt Count 158 (150-450) k/uL Neutrophils % 79 % Lymphocytes % 14 % Monocytes % 4 % Eosinophils % 1 % Basophils % 0 % Neutrophils # 6.5 (1.3-7.7) k/uL Lymphocytes # 1.1 (1.0-4.8) k/uL Monocytes # 0.4 (0-1.0) k/uL Eosinophils # 0.1 (0-0.7) k/uL Basophils # 0.0 (0-0.2) k/uL PT 10.0 (9.0-12.0) sec INR 0.9 (<1.2) APTT 21.9 L (22.0-30.0) sec D-Dimer 0.37 (<0.60) mg/L FEU Sodium 137 (137-145) mmol/L Potassium 4.1 (3.5-5.1) mmol/L Chloride 105 (98-107) mmol/L Carbon Dioxide 25 (22-30) mmol/L Anion Gap 7 mmol/L BUN 16 (9-20) mg/dL Creatinine 1.04 (0.66-1.25) mg/dL Est GFR (CKD-EPI)AfAm 87 (>60 ml/min/1.73 sqM) Est GFR (CKD-EPI)NonAf 75 (>60 ml/min/1.73 sqM) Glucose 139 H (74-99) mg/dL POC Glucose (mg/dL) (75-99) mg/dL POC Glu Cooking Casing And Drying Supervisor ID Calcium 9.0 (8.4-10.2) mg/dL Magnesium 2.0 (1.6-2.3) mg/dL Total Bilirubin 0.5 (0.2-1.3) mg/dL AST 20 (17-59) U/L ALT 21 (21-72) U/L Alkaline Phosphatase 59 (38-126) U/L Creatine Kinase 114 (55-170) U/L Troponin I (0.000-0.034) ng/mL Total Protein 6.5 (6.3-8.2) g/dL Albumin 4.0 (3.5-5.0) g/dL Urine Color Urine Appearance (Clear) Urine pH (5.0-8.0) Ur Specific [place] (1.001-1.035) Urine Protein (Negative) Urine Glucose (UA) (Negative) Urine Ketones (Negative) Urine Blood (Negative) Urine Nitrite (Negative) Urine Bilirubin (Negative) Urine Urobilinogen (<2.0) mg/dL Ur Leukocyte Esterase (Negative) Urine RBC (0-5) /hpf Urine WBC (0-5) /hpf Urine Mucus (None) /hpf 04/13/19 04/13/19 04/13/19 Range/Units 07:45 07:52 09:25 WBC (3.8-10.6) k/uL RBC (4.30-5.90) m/uL Hgb (13.0-17.5) gm/dL Hct (39.0-53.0) % MCV (80.0-100.0) fL MCH (25.0-35.0) pg MCHC (31.0-37.0) g/dL RDW (11.5-15.5) % Plt Count (150-450) k/uL Neutrophils % % Lymphocytes % % Monocytes % % Eosinophils % % Basophils % % Neutrophils # (1.3-7.7) k/uL Lymphocytes # (1.0-4.8) k/uL Monocytes # (0-1.0) k/uL Eosinophils # (0-0.7) k/uL Basophils # (0-0.2) k/uL PT (9.0-12.0) sec INR (<1.2) APTT (22.0-30.0) sec D-Dimer (<0.60) mg/L FEU Sodium (137-145) mmol/L Potassium (3.5-5.1) mmol/L Chloride (98-107) mmol/L Carbon Dioxide (22-30) mmol/L Anion Gap mmol/L BUN (9-20) mg/dL Creatinine (0.66-1.25) mg/dL Est GFR (CKD-EPI)AfAm (>60 ml/min/1.73 sqM) Est GFR (CKD-EPI)NonAf (>60 ml/min/1.73 sqM) Glucose (74-99) mg/dL POC Glucose (mg/dL) 142 H (75-99) mg/dL POC Glu Cooking Casing And Drying Supervisor ID Galina Howard Calcium (8.4-10.2) mg/dL Magnesium (1.6-2.3) mg/dL Total Bilirubin (0.2-1.3) mg/dL AST (17-59) U/L ALT (21-72) U/L Alkaline Phosphatase (38-126) U/L Creatine Kinase (55-170) U/L Troponin I <0.012 (0.000-0.034) ng/mL Total Protein (6.3-8.2) g/dL Albumin (3.5-5.0) g/dL Urine Color Yellow Urine Appearance Clear (Clear) Urine pH 6.5 (5.0-8.0) Ur Specific [place] 1.018 (1.001-1.035) Urine Protein Negative (Negative) Urine Glucose (UA) Negative (Negative) Urine Ketones Negative (Negative) Urine Blood Trace H (Negative) Urine Nitrite Negative (Negative) Urine Bilirubin Negative (Negative) Urine Urobilinogen <2.0 (<2.0) mg/dL Ur Leukocyte Esterase Negative (Negative) Urine RBC 1 (0-5) /hpf Urine WBC <1 (0-5) /hpf Urine Mucus Rare H (None) /hpf Disposition Clinical Impression: Near syncope, Smoker, Bronchospasm, acute Disposition: ADMITTED IP TO THIS [facility] Condition: Stable Referrals: Any Junior DO [Primary Care Provider] - 1-2 days Procedures - Smoking Cessation Time Spent Discussing Smoking Cessation w/Patient (Minutes): 3
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
[2019-04-13] MEDS: ASPIRIN 81 MG PO SCH (13:43)
[2019-04-13] MEDS: IPRATROPIUM-ALBUTEROL 3 ML NEB INHALATION SCH ×2 (15:17→20:08)
--- NOTE | 2019-04-13 15:39 | CT ---
EXAMINATION TYPE: CT angio head neck DATE OF EXAM: 04/13/2019 HISTORY: Syncope R/O VBI COMPARISON: CT brain dated 04/13/2019 CT DLP: 383.6 mGycm. Automated Exposure Control for Dose Reduction was Utilized. TECHNIQUE: CTA scan of the neck is performed with IV Contrast, patient injected with 100 ml mL of Is ovue 370, axial images are obtained, coronal and sagittal reformatted images are reviewed. Three-D re constructed images are created on an independent workstation and reviewed. FINDINGS: CAROTID/VASCULAR STRUCTURES: Left vertebral artery is slightly dominant. Vertebral arteries have a co nventional origin and appear patent throughout. Basilar artery is also patent. Minimal atherosclerosi s is seen of the aortic arch. A short segment of the left common carotid artery is not visualized due to extensive spray artifact originating from the left axilla. The remainder of the common carotid ar teries are patent and unremarkable. Minimal nonhemodynamically significant calcific atheromatous plaq uing is seen of the right carotid artery. Within the right internal carotid artery located 1.3 cm distal to the carotid bulb there is a short s egment of stenosis measuring 6 mm in length. This stenosis measures approximately 70%. Within the lef t carotid bulb there is approximately 50% stenosis extending into the origin of the left internal car otid artery. Remainder of the internal carotid arteries are patent with nonhemodynamically significan t stenosis in the cavernous portions and supraglenoid portions. No focal stenosis is seen within the major intracranial arterial vasculature. The posterior communica ting arteries are either diminutive or congenitally absent. No aneurysmal dilatation is seen nor occl usion. OTHER: Visualized portions of the brain are discussed on the CT brain dictation of the same date. Min imal left apical atelectasis is seen. Moderate multilevel degenerative changes of the cervical spine is noted. IMPRESSION: 1. Short segment stenosis of 70% of the right internal carotid artery extending a length of 6 mm begi nning 1.3 cm distal to the carotid bulb. 2. Approximately 50% stenosis within the left carotid bulb extending into the origin of the left inte rnal carotid artery. 3. No evidence of focal occlusion, dissection, aneurysmal outpouching or additional area of hemodynam ically significant stenosis in the major arterial vasculature of the head or neck.
--- NOTE | 2019-04-13 16:19 | P.PN ---
Progress Note - Text Progress Note Date: 04/13/19 CTA Head/Neck results reviewed with patient and family at bedside. No evidence of VBI. However, there is TAMI segmental stenosis of 70% and LICA 50% stenosis. These are incidental findings and not explanatory of his syncopal episode. Per AAN guidelines, patient may benefit from vascular surgery consult regarding his TAMI 70% stenosis. This may be done as outpatient. Primary team please place referral. Meanwhile, continue medical management including aspirin, statin with goal LDL<70 and antihypertensives. OK to discharge from neuro perspective.
[2019-04-13 16:57] LABS: Glucose,Whole Blood 96 mg/dL (75-99)
[2019-04-13] MEDS ORDERED: TAMSULOSIN 0.4 MG CAP.ER.24H PO SCH (21:00)
[2019-04-13] MEDS ORDERED: LISINOPRIL 20 MG TAB PO SCH (21:00)
[2019-04-13] MEDS ORDERED: ATORVASTATIN 40 MG TAB PO SCH (21:00)
[2019-04-14] MEDS: IPRATROPIUM-ALBUTEROL 3 ML NEB INHALATION SCH ×2 (01:18→07:24)
[2019-04-14 06:24] LABS: Basophils % (A) 1 %; Eosinophils # (A) 0.1 k/uL (0-0.7); Eosinophils % (A) 3 %; HCT 44.2 % (39.0-53.0); HGB 14.5 gm/dL (13.0-17.5); Lymphocytes # (A) 1.6 k/uL (1.0-4.8); Lymphocytes % (A) 29 %; MCHC 32.8 g/dL (31.0-37.0); MCV 88.3 fL (80.0-100.0); Mean Platelet Volume 6.6; Monocytes # (A) 0.4 k/uL (0-1.0); Monocytes % (A) 7 %; Neutrophils # (A) 3.3 k/uL (1.3-7.7); Neutrophils % (A) 59 %; Platelet Count 170 k/uL (150-450); RDW 13.7 % (11.5-15.5); WBC 5.5 k/uL (3.8-10.6)
[2019-04-14 06:35] LABS: Albumin 3.7 g/dL (3.5-5.0); Calcium 9.4 mg/dL (8.4-10.2); Total Bilirubin 0.4 mg/dL (0.2-1.3); Total Protein 6.1 g/dL (6.3-8.2)
[2019-04-14] MEDS ORDERED: PANTOPRAZOLE 40 MG TABLET PO SCH (07:30)
--- NOTE | 2019-04-14 08:25 | ECHOF ---
Referral Reason:Near syncope MEASUREMENTS -------- HEIGHT: 160.0 cm WEIGHT: 63.5 kg BP: IVSd: 1.3 cm (0.6 - 1.1) LVIDd: 3.9 cm (3.9 - 5.3) LVPWd: 1.4 cm (0.6 - 1.1) IVSs: 2.1 cm LVIDs: 2.2 cm LVPWs: 1.8 cm LAESV Index (A-L): 16.82 ml/m Ao Diam: 3.2 cm (2.0 - 3.7) AV Cusp: 1.7 cm (1.5 - 2.6) LA Diam: 2.2 cm (2.7 - 3.8) MV EXCURSION: 14.577 mm (> 18.000) MV EF SLOPE: 73 mm/s (70 - 150) EPSS: 0.5 cm MV E Angus: 0.78 m/s MV DecT: 108 ms MV A Angus: 0.75 m/s MV E/A Ratio: 1.04 RAP: 5.00 mmHg RVSP: 21.15 mmHg FINDINGS -------- Sinus rhythm. This was a technically good study. The left ventricular size is normal. There is mild concentric left ventricular hypertrophy. Overa ll left ventricular systolic function is normal with, an EF between 55 - 60 %. The right ventricle is normal in size. Normal LA size by volume 22+/-6 ml/m2. The right atrial size is normal. Interatrial and interventricular septum intact. The aortic valve is trileaflet and appears structurally normal. The mitral valve leaflets are mildly thickened. Mild mitral annular calcification present. There is trace mitral regurgitation. Mild tricuspid regurgitation present. There is no evidence of pulmonary hypertension. The right v entricular systolic pressure, as measured by Doppler, is 21.15mmHg. There is no pulmonic regurgitation present. The aortic root size is normal. Normal inferior vena cava with normal inspiratory collapse consistent with estimated right atrial pre ssure of 5 mmHg. There is no pericardial effusion. CONCLUSIONS -------- 1. Sinus rhythm. 2. This was a technically good study. 3. The left ventricular size is normal. 4. There is mild concentric left ventricular hypertrophy. 5. Overall left ventricular systolic function is normal with, an EF between 55 - 60 %. 6. The right ventricle is normal in size. 7. Normal LA size by volume 22+/-6 ml/m2. 8. The right atrial size is normal. 9. Interatrial and interventricular septum intact. 10. The aortic valve is trileaflet and appears structurally normal. 11. Mild mitral annular calcification present. 12. There is trace mitral regurgitation. 13. Mild tricuspid regurgitation present. 14. There is no evidence of pulmonary hypertension. 15. The right ventricular systolic pressure, as measured by Doppler, is 21.15mmHg. 16. There is no pulmonic regurgitation present. 17. The aortic root size is normal. 18. Normal inferior vena cava with normal inspiratory collapse consistent with estimated right atrial pressure of 5 mmHg. 19. There is no pericardial effusion. SHANK BONER: Yuly Akers RDCS
[2019-04-14 08:50] VITALS: BP 134/72; PULSE 105; RESP 18; TEMP 98.1
[2019-04-14] MEDS ORDERED: CHOLECALCIFEROL 1,000 UNIT TAB PO SCH (09:00)
[2019-04-14] MEDS ORDERED: ENOXAPARIN 40 MG/0.4 ML SYRINGE SQ SCH (09:00)
--- NOTE | 2019-04-14 09:27 | CONS ---
CONSULTATION Mr. Asencio is a 63-year-old male who presented with a syncopal episode. He was sitting at work when he became dizzy and subsequently stood up, walked to go outside and had syncopal episode. He did not have any associated palpitation. He did not have any chest discomfort. He became nauseated after. He had no focal weakness and no tonic-clonic activity. He had no prior history of syncope. He has episode of dizziness. He has a history of dizziness but no documented arrhythmia. He was in the hospital in January of 2017 with an episode of dizziness and at that time, his echocardiogram revealed a preserved left ventricular size and systolic function. He had a prior history of chest discomfort that is not exertional in pattern, has underwent stress test according to him in the past that was unremarkable. He is scheduled to undergo a stress test by Dr. Junior soon as an outpatient. He is average in his exercise tolerance, has some dyspnea on exertion, but no exertional chest pain. He has no PND, no orthopnea. No peripheral edema. His coronary risk factors are remarkable for smoking about 3/4 of a pack a day. He has hypertension and hyperlipidemia. He is a nondiabetic. MEDICATION: His medications include simvastatin 80 mg daily, lisinopril 20 mg daily, aspirin once a day, vitamin D and Flomax. REVIEW OF SYSTEMS: Respiratory system: He has history of occasional wheezing, chronic tobacco use. GI system: Occasional GI bleeding that appears to be hemorrhoids. No nausea, no vomiting, no peptic ulcer disease. system: No dysuria or hematuria. Nervous system: No history of stroke or seizure. PHYSICAL EXAMINATION: 63-year-old male, alert, oriented, in no apparent distress. Blood pressure 126/60 with a heart in 90s. He had some orthostatic changes on his blood pressure earlier. HEAD: Normocephalic. Eyes sclerae anicteric. NECK: Good upstroke. No bruit. No jugular venous distention. LUNGS: Clear to auscultation. HEART: Regular rate and rhythm S1, S2. No S3 with a systolic murmur at the base, 2/6. No diastolic murmur. No rub. ABDOMEN: Soft, nontender. Positive bowel sounds. No megaly. EXTREMITIES: No edema. Intact distal pulses. LAB DATA: Lab data revealed hemoglobin of 14.5, BUN and creatinine 15 and 1.15, potassium of 5. Troponin less than 0.012. EKG revealed a sinus mechanism, normal axis and intervals. No acute changes. Chest x-ray shows evidence suggest COPD. CT scan of the head revealed old right basal ganglia lacunar injuries. He had a CT angiogram of the carotid and the head that showed a short-segment 70% stenosis in the right internal carotid artery with 50% stenosis in the left carotid artery. IMPRESSION: 1. Syncopal episode of unclear etiology. Preceded by dizziness. The episode of syncope could be related to vasodepressor syncope. There is no evidence of malignant arrhythmia or acute coronary syndrome. There is no evidence of acute neurological event. 2. History of hypertension. 3. Hyperlipidemia. 4. Chronic tobacco use. 5. Carotid disease although not explaining his symptoms. RECOMMENDATION: From the cardiac standpoint, I will obtain echocardiogram with Doppler. Increase his level of activity. If there is no evidence of abnormality on the echo, I expect he should be able to be discharged home. The patient will benefit from a stress test that can be done as an outpatient. He has already been scheduled according to him to undergo one by his primary care physician. Thank you for this consult. MMODL / IJN: [id number] /
[2019-04-14] MEDS: ASPIRIN 81 MG PO SCH (09:46)
--- NOTE | 2019-04-14 10:30 | P.DS ---
Providers Date of admission: 04/13/19 11:25 Expected date of discharge: 04/14/19 Attending physician: Narciso Sosa Consults: 04/13/19 11:26 Consult Physician Routine Consulting Provider: Vanessa Lester Consult Reason/Comments: Near syncope Do you want consulting provider notified?: Yes, Notify in am 04/13/19 12:50 Consult Physician Routine Consulting Provider: Dion Santos Consult Reason/Comments: syncope Do you want consulting provider notified?: Yes Primary care physician: Any [facility] Hospital Course: Diagnoses on discharge: 1. Syncopal episode: Computed tomography scan of the brain showing no acute stroke. Did reveal 2 old right basal ganglia lacunar injuries and diffuse age- related cerebral atrophy and chronic small vessel ischemic change. Check 2-D echo and carotid ultrasound. Place patient on telemetry monitoring to monitor for any cardiac arrhythmias. EKG showing normal sinus rhythm. Electrolytes are normal, kidney functions are normal, d-dimer is normal first troponin is normal. Glucose 139. No hypoglycemia. No evidence of infection urinalysis is negative .chest x-ray showing no pneumonia. Consult cardiology and neurology 2. Dizziness: Check for orthostatic hypotension 3. Nausea and vomiting. Patient has a history of cholecystectomy. Liver enzymes are normal. Check lipase 4. Shortness of breath with wheezing: add DuoNeb updrafts 4 times a day and as needed. Possible COPD noted on chest x-ray. Patient is noncompliant with his inhalers 5. Chest pains. First set of cardiac enzymes negative. EKG normal sinus rhythm. Continue monitoring troponins and will have patient evaluated by cardiology 6. Essential hypertension resume lisinopril 7. Hyperlipidemia continue Lipitor 8. History of lacunar injuries noted on computed tomography scan of the brain 9. History of BPH continue Flomax 10. Nicotine dependence: Discussed smoking cessation for greater than 3 minutes. Patient refuses nicotine patch Hospital course: This is a 63-year-old male, patient of [facility]. He has a known past medical history of hypertension, hyperlipidemia, nicotine dependence and BPH. Patient presents to the emergency room with complaints of dizziness, nausea and vomiting and syncopal episode. Patient reports that he was sitting at his desk at work for probably about 15 minutes became very nauseous and dizzy had 3 episodes of vomiting. Patient feels that he did pass out. He was found laying on the floor by the work staff. And EMS was called. Patient was then brought into the ER for further evaluation and treatment. Computed tomography scan of the brain shows to old right basal ganglia lacunar injuries and diffuse age-related cerebral atrophy and chronic small vessel ischemic change. Chest x- ray showing no acute pulmonary process but correlate for COPD. EKG is normal sinus rhythm. First troponin is negative. Glucose 139 d-dimer 0.37 CBC is normal. LFTs are normal. Lipase is pending. Kidney functions are within normal limits as well as electrolytes. Patient does report occasionally having some chest discomfort and noticing worsening shortness of breath especially with ambulating. He is wheezing nebulizer treatments have been ordered. He reports that he officially wasn't diagnosed with COPD but he is on inhalers that he does not use on a regular basis. Patient denies any fever, chills or sweats. Denies any bowel movement changes or urinary symptoms. Urinalysis is negative During this admission, patient had a computed tomography scan of the brain without contrast, that did not reveal any significant acute abnormality, it showed 2 old right basal ganglia lacunar injuries, and age-related cerebral atrophy and chronic small vessel ischemic changes. Chest x-ray did not reveal any acute process there was evidence of COPD. EKG revealed normal sinus rhythm, normal EKG. Echocardiogram was within normal limits, ejection fraction 55-60% no significant valvular disease no evidence of pulmonary hypertension and no pericardial effusion. CT angiogram of the head and neck was done and revealed some carotid artery stenosis in one segment it was up to 70% within the right internal carotid artery. Patient was evaluated by cardiology and by neurology, he was cleared for discharge. He will need a stress test in the near future which will be arranged by his primary care physician. Patient was made aware of [place] law that prohibiting driving for 6 months after any incidence of loss of consciousness, however he is denying that he lost consciousness he stated that he felt dizzy and he laid down on the floor. I will leave it up to his primary care physician to reevaluate, and assess whether patient had a complete loss of consciousness. Patient Condition at Discharge: Stable Plan - Discharge Summary Discharge Rx Participant: No New Discharge Prescriptions: Continue Cholecalciferol [Vitamin D3 (25 Mcg = 1000 Iu)] 2,000 unit PO DAILY Tamsulosin HCl [Flomax] 0.4 mg PO HS Simvastatin [Zocor] 80 mg PO HS Lisinopril [Zestril] 20 mg PO HS Aspirin [Adult Low Dose Aspirin EC] 81 mg PO DAILY Discharge Medication List Cholecalciferol [Vitamin D3 (25 Mcg = 1000 Iu)] 2,000 unit PO DAILY 01/27/17 [History] Lisinopril [Zestril] 20 mg PO HS 01/27/17 [History] Simvastatin [Zocor] 80 mg PO HS 01/27/17 [History] Tamsulosin HCl [Flomax] 0.4 mg PO HS 01/27/17 [History] Aspirin [Adult Low Dose Aspirin EC] 81 mg PO DAILY 02/24/17 [History] Follow up Appointment(s)/Referral(s): Any Junior DO [Primary Care Provider] - 1-2 days
== END 2019-04-14 10:42 | disposition home or self-care (01) ==
LOC: EC 07:35 → 1SOBS 11:25
PROVIDERS: ADMIT Internal Medicine; ATTEND Internal Medicine
DX: R55 Syncope and collapse (principal); E78.5 Hyperlipidemia, unspecified; I10 Essential (primary) hypertension; J44.9 Chronic obstructive pulmonary disease, unspecified; I65.29 Occlusion and stenosis of unspecified carotid artery; R06.02 Shortness of breath; R11.2 Nausea with vomiting, unspecified; R07.89 Other chest pain; R42 Dizziness and giddiness; F17.210 Nicotine dependence, cigarettes, uncomplicated; N40.0 Benign prostatic hyperplasia without lower urinary tract symptoms; Z71.6 Tobacco abuse counseling; Z90.49 Acquired absence of other specified parts of digestive tract; Z91.19 Patient's noncompliance with other medical treatment and regimen; Z79.82 Long term (current) use of aspirin; Z79.899 Other long term (current) drug therapy; Z81.8 Family history of other mental and behavioral disorders; Z82.49 Family history of ischemic heart disease and other diseases of the circulatory system
CPT/HCPCS: 96372; 96360; 99285; 36415; 94640 ×2; 93306; 85379; 80053 ×2; 82150; 82550; 83690 ×2; 83735; 84484; 85025 ×2; 85610; 85730; 81001; 71046; 70496; 70450; 70498; G0378 ×2; J1650; Q9967

== ENCOUNTER → 2023-10-14 | Outpatient (CLI) | payer MEDICARE, BC ==
[2023-10-14 14:40] LABS: African American GFR (CKD) 70 (>60 ml/min/1.73 sqM); Blood Urea Nitrogen 24 mg/dL (9-20); Non-African American GFR(CKD) 60 (>60 ml/min/1.73 sqM)
--- NOTE | 2023-10-16 07:03 | CT ---
EXAMINATION TYPE: CT abdomen pelvis w con DATE OF EXAM: 10/14/2023 COMPARISON: 02/03/2017 HISTORY: blood in stool x [address] DLP: 614.2 mGycm Automated exposure control for dose reduction was used. TECHNIQUE: Helical acquisition of images was performed from the lung bases through the pelvis. CONTRAST: Performed with Oral Contrast and with IV Contrast, patient injected with 80 cc mL of Isovue 300. FINDINGS: The lung bases are clear. There are surgical absence of gallbladder. There is no biliary ductal dilatation. There is no focal mass or organomegaly involving the liver, pancreas, spleen or adrenal glands. There is no solid renal mass or hydronephrosis. The caliber the abdominal aorta is normal is no retro peritoneal adenopathy or hemorrhage. The bowel loops are normal in caliber and there is no evidence of obstruction. There is questionable mild thickening in the wall of the sigmoid colon however this may be related to incomplete distention with contrast. The remainder the bowel is normal without wall thickening or inflammatory changes in the mesentery. There is no free intraperitoneal air or fluid. There is no pelvic mass free fluid, abscess or adenopathy. The prostate gland is mildly prominent. The osseous structures are intact. IMPRESSION: Questionable mild thickening of the wall of the sigmoid colon however this may be related to incomple te distention with contrast as described above. No other significant abnormality seen.
== END | disposition home or self-care (01) ==
LOC: RADCTMAIN 13:57
PROVIDERS: ATTEND Family Medicine
DX: K92.1 Melena (principal); R63.4 Abnormal weight loss
CPT/HCPCS: 82565; 84520; 74177; 36415; Q9967

== ENCOUNTER → 2023-10-25 | Day surgery (SDC) | payer MEDICARE, BC ==
[2023-10-19 11:47] VITALS: BMI 25.7
[~2023-10-25] MED LIST changes: -DEXAMETHASONE SOD PHOSPHATE 10 MG/ML 1 ML VIAL IV ONE; -HEPARIN SODIUM,PORCINE 5,000 UNIT/ML 1 ML VIAL SQ ONE; -HYDROmorphone 1 MG/ML 1 ML SYRINGE IVP PRN; +LIDOCAINE 1% (10MG/ML) FOR IV START INTRADERMA ONE; -ONDANSETRON 4 MG/2 ML VIAL IVP ONE; +PROPOFOL 10 MG/ML 20 ML VIAL IV ONE; -ceFAZolin 2 GM in SODIUM CHLORIDE 0.9% 100 ML IVPB ONE
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
--- NOTE | 2023-10-25 13:02 | P.PCN ---
Date of Procedure: 10/25/23 Procedure(s) Performed: PREOPERATIVE DIAGNOSIS: Rectal bleeding POSTOPERATIVE DIAGNOSIS: Small internal hemorrhoids PROCEDURE: Colonoscopy ANESTHESIA: MAC SURGEON: Valdemar Medina M.D. SPECIMENS: None ENDOSCOPIC PROCEDURE: The patient was placed on the endoscopy table in the left decubitus position. The Olympus colonoscope was inserted into the anus and passed under direct visualization to the base of the cecum. The appendiceal orifice was visualized. From that point the scope was slowly withdrawn inspecting all surfaces carefully. There were no neoplastic inflammatory or polypoid lesions throughout the cecum, ascending, transverse, descending, sigmoid and rectum. There was no visible diverticulosis noted. Retroflexion of the anus revealed small internal hemorrhoids without any evidence of recent or active bleeding. Digital rectal examination was normal. The patient was taken to the recovery room in stable condition per anesthesia guidelines. RECOMMENDATIONS: Resume diet. Increase fiber. If bleeding persists consider hemorrhoidal banding
[2023-10-25 13:06] VITALS: TEMP 97.7
[2023-10-25 13:37] VITALS: BP 118/73; PULSE 82; RESP 16
== END ==
LOC: ORWHC2ENDO 11:44
PROVIDERS: ATTEND Surgery
DX: K64.8 Other hemorrhoids (principal); K62.5 Hemorrhage of anus and rectum; I10 Essential (primary) hypertension; E78.5 Hyperlipidemia, unspecified; F17.210 Nicotine dependence, cigarettes, uncomplicated; Z90.49 Acquired absence of other specified parts of digestive tract; Z79.82 Long term (current) use of aspirin; Z79.899 Other long term (current) drug therapy; Z86.010 Personal history of colon polyps
CPT/HCPCS: J2704; G0121; 45378